=== PATIENT | female | born 1935 | race Native Hawaiian/Other Pacific Islander ===

== ENCOUNTER 2020-04-22 14:10 | Emergency (ER) | payer MEDICARE, OTHER ==
[2020-04-22 14:21] VITALS: PULSE 75
--- NOTE | 2020-04-22 14:34 | ED ---
General Adult HPI - General Chief complaint: Allergic Reaction Stated complaint: Bee Sting Time Seen by Provider: 04/22/20 14:23 Source: patient, EMS, RN notes reviewed Mode of arrival: EMS Limitations: no limitations - History of Present Illness Initial comments: 84-year-old female presents to the emergency room for a chief complaint of bee sting. Patient reports that she was stung in the bottom of the foot by a bee approximately 3 hours prior to arrival. Patient reports it is very itchy. A few minutes later patient started to feel lightheaded and short of breath. They called the ambulance and EMS gave the patient Benadryl, Solu-Medrol, and 0.3 mcg epinephrine on scene. They then transported patient to the hospital which took approximately 45 minutes. Patient reports that at this time she is feeling back to baseline. Denies chest pain or shortness of breath. States that she is feeling well.Patient has no other complaints at this time including shortness of breath, chest pain, abdominal pain, nausea or vomiting, headache, or visual changes. - Related Data Home Medications Medication Instructions Recorded Confirmed Ibuprofen [Motrin] 600 mg PO BID 02/18/16 04/22/20 Sertraline HCl [Zoloft] 50 mg PO DAILY 02/18/16 04/22/20 Loratadine 10 mg PO DAILY 04/22/20 04/22/20 Losartan [Cozaar] 50 mg PO DAILY 04/22/20 04/22/20 Previous Rx's Medication Instructions Recorded EPINEPHrine (Auto Inject) [Epipen] 0.3 mg IM ONCE PRN #1 pen 04/22/20 diphenhydrAMINE HCL [Benadryl] 25 mg PO TID 3 Days #20 tab 04/22/20 predniSONE 50 mg PO DAILY #5 tablet 04/22/20 Allergies Allergy/AdvReac Type Severity Reaction Status Date / Time aspirin Allergy Unknown Verified 04/22/20 15:34 Review of Systems ROS Statement: Those systems with pertinent positive or pertinent negative responses have been documented in the HPI. ROS Other: All systems not noted in ROS Statement are negative. Past Medical History Past Medical History: COPD, Hypertension Additional Past Medical History / Comment(s): uses cane History of Any Multi-Drug Resistant Organisms: None Reported Past Surgical History: Orthopedic Surgery Additional Past Surgical History / Comment(s): rt arm mass removed Past Anesthesia/Blood Transfusion Reactions: No Reported Reaction Past Psychological History: Depression Smoking Status: Current every day smoker Past Alcohol Use History: None Reported Past Drug Use History: None Reported - Past Family History Mother Family Medical History: No Reported History General Exam Limitations: no limitations General appearance: alert, in no apparent distress Head exam: Present: atraumatic, normocephalic, normal inspection Eye exam: Present: normal appearance, PERRL, EOMI. Absent: scleral icterus, conjunctival injection, periorbital swelling ENT exam: Present: normal exam, mucous membranes moist Neck exam: Present: normal inspection, full ROM. Absent: tenderness, menin gismus, lymphadenopathy Respiratory exam: Present: normal lung sounds bilaterally. Absent: respiratory distress, wheezes, rales, rhonchi, stridor Cardiovascular Exam: Present: regular rate, normal rhythm, normal heart sounds. Absent: systolic murmur, diastolic murmur, rubs, gallop, clicks GI/Abdominal exam: Present: soft, normal bowel sounds. Absent: distended, tenderness, guarding, rebound, rigid Extremities exam: Present: other (nonerythematous, non edematous left foot) Neurological exam: Present: alert Course Vital Signs 04/22/20 14:13 Temperature 97.7 F Pulse Rate 75 Respiratory 17 Rate Blood Pressure 154/74 O2 Sat by Pulse 100 Oximetry EKG Findings - EKG Comments: EKG Findings:: Normal sinus rhythm, ventricular rate 73, MA interval 160, QTC 447 Medical Decision Making - Medical Decision Making Patient had ALLERGIC reaction to a bee sting. Patient states she did see a wasp on the floor of her room and when she went to step on it to kill that it stung her. Patient had shortness of breath prior to arrival. She was given epinephrine, Benadryl, and Solu-Medrol as well as fluids by EMS. Patient was monitored for 2 hours in our emergency room. She was kept on cardiac telemetry. EKG was obtained which was normal. Heart rate consistently in the 70s. At this time patient can be discharged home. I did prescribe her an EpiPen that I discussed that she should only take this if she is becoming short of breath or having swelling of her lips tongue or throat. Otherwise she will take prednisone and Benadryl which I did discuss.I discussed this case with attending Dr. Bueno who agrees with this assessment and treatment plan. Disposition Clinical Impression: Allergic reaction Disposition: HOME SELF-CARE Condition: Good Instructions (If sedation given, give patient instructions): General Allergic Reaction (ED) Additional Instructions: Please take steroids starting tomorrow. Take Benadryl as directed however be aware that this can cause risk of falls. Use epi-pen only if you have another ALLERGIC reaction in the future that is causing shortness of breath or swelling of the lips tongue or throat. Follow-up with your doctor in one to 2 days for a recheck. Return to the emergency room for any worsening symptoms. Prescriptions: diphenhydrAMINE HCL [Benadryl] 25 mg PO TID 3 Days #20 tab EPINEPHrine (Auto Inject) [Epipen] 0.3 mg IM ONCE PRN #1 pen PRN Reason: Anaphylaxis predniSONE 50 mg PO DAILY #5 tablet Is patient prescribed a controlled substance at d/c from ED?: No Referrals: Nilesh Stanford MD [STAFF PHYSICIAN] - 1-2 days Time of Disposition: 16:10
[2020-04-22 16:28] VITALS: BP 145/73; RESP 19; TEMP 98
== END 2020-04-22 16:28 | disposition home or self-care (01) ==
LOC: EC 14:10
DX: T63.441A Toxic effect of venom of bees, accidental (unintentional), initial encounter (principal); I10 Essential (primary) hypertension; F32.9 Major depressive disorder, single episode, unspecified; F17.200 Nicotine dependence, unspecified, uncomplicated; Z79.899 Other long term (current) drug therapy; Z88.6 Allergy status to analgesic agent
CPT/HCPCS: 93005; 99283

== ENCOUNTER 2020-06-06 09:00 | Emergency (ER) | payer MEDICARE, OTHER ==
[2020-06-06 09:10] VITALS: RESP 18; TEMP 97.7
[2020-06-06] MEDS ORDERED: HYDROmorphone 1 MG/ML 1 ML SYRINGE IM STA (09:30)
--- NOTE | 2020-06-06 09:40 | ED ---
General Adult HPI - General Chief complaint: Extremity Injury, Lower Stated complaint: Pain in left hip Time Seen by Provider: 06/06/20 09:17 Source: family, RN notes reviewed Mode of arrival: ambulatory Limitations: language barrier - History of Present Illness Initial comments: This an 84-year-old female presents emergency Department with chief complaint of right leg pain, back pain. Patient states started a few days ago. Patient states that she felt like she injured it. Patient denies any bowel, bladder incontinence or retention or saddle anesthesia no lower procedure. Patient states the pain is worse with certain movements has no abdominal complaints no chest pain or shortness breath no history of back surgery. Patient has not taken anything for the pain. - Related Data Home Medications Medication Instructions Recorded Confirmed Ibuprofen [Motrin] 600 mg PO BID 02/18/16 04/22/20 Sertraline HCl [Zoloft] 50 mg PO DAILY 02/18/16 04/22/20 Loratadine 10 mg PO DAILY 04/22/20 04/22/20 Losartan [Cozaar] 50 mg PO DAILY 04/22/20 04/22/20 Previous Rx's Medication Instructions Recorded EPINEPHrine (Auto Inject) [Epipen] 0.3 mg IM ONCE PRN #1 pen 04/22/20 diphenhydrAMINE HCL [Benadryl] 25 mg PO TID 3 Days #20 tab 04/22/20 predniSONE 50 mg PO DAILY #5 tablet 04/22/20 Ibuprofen [Motrin] 600 mg PO Q8HR PRN #20 tab 06/06/20 predniSONE 50 mg PO DAILY #5 tab 06/06/20 Allergies Allergy/AdvReac Type Severity Reaction Status Date / Time aspirin Allergy Unknown Verified 06/06/20 09:10 Review of Systems ROS Statement: Those systems with pertinent positive or pertinent negative responses have been documented in the HPI. ROS Other: All systems not noted in ROS Statement are negative. Past Medical History Past Medical History: COPD, Hypertension Additional Past Medical History / Comment(s): uses cane History of Any Multi-Drug Resistant Organisms: None Reported Past Surgical History: Orthopedic Surgery Additional Past Surgical History / Comment(s): rt arm mass removed Past Anesthesia/Blood Transfusion Reactions: No Reported Reaction Past Psychological History: Depression Smoking Status: Current every day smoker Past Alcohol Use History: None Reported Past Drug Use History: None Reported - Past Family History Mother Family Medical History: No Reported History General Exam Limitations: language barrier General appearance: alert, in no apparent distress Head exam: Present: atraumatic, normocephalic, normal inspection Eye exam: Present: normal appearance, PERRL, EOMI. Absent: scleral icterus, conjunctival injection, periorbital swelling Neck exam: Present: normal inspection, full ROM. Absent: tenderness, meningismus, lymphadenopathy Respiratory exam: Present: normal lung sounds bilaterally. Absent: respiratory distress, wheezes, rales, rhonchi, stridor Cardiovascular Exam: Present: regular rate, normal rhythm, normal heart sounds. Absent: systolic murmur, diastolic murmur, rubs, gallop, clicks GI/Abdominal exam: Present: soft, normal bowel sounds. Absent: distended, tenderness, guarding, rebound, rigid Extremities exam: Present: other (Lower extremity strength equal bilaterally, neurovascular intact equal warmth moderate pain with right straight leg raise though strength is 5/5 both legs) Back exam: Present: full ROM, tenderness, paraspinal tenderness. Absent: vertebral tenderness Neurological exam: Present: reflexes normal. Absent: motor sensory deficit Course Vital Signs 06/06/20 09:08 Temperature 97.7 F Pulse Rate 62 Respiratory 18 Rate Blood Pressure 203/88 O2 Sat by Pulse 99 Oximetry Medical Decision Making - Medical Decision Making X-ray shows degenerative changes. Patient is moderately intact with no red flag symptoms. Patient has lumbar radiculopathy type symptoms. Patient provided course steroids, pain control with follow-up with orthopedics if no improvement. Disposition Clinical Impression: Lumbar radiculopathy, acute Disposition: HOME SELF-CARE Condition: Stable Instructions (If sedation given, give patient instructions): Lumbar Radiculopathy (ED) Additional Instructions: Please return to the Emergency Department if symptoms worsen or any other concerns. Prescriptions: Ibuprofen [Motrin] 600 mg PO Q8HR PRN #20 tab PRN Reason: Pain predniSONE 50 mg PO DAILY #5 tab Is patient prescribed a controlled substance at d/c from ED?: No Referrals: Rolando Brooke MD [Primary Care Provider] - 1-2 days Jayden Kinsey DO [Doctor of Osteopathic Medicine] - 1-2 days Time of Disposition: 10:17
--- NOTE | 2020-06-06 10:05 | XR ---
EXAMINATION TYPE: XR lumbosacral spine 5 views DATE OF EXAM: 06/06/2020 Comparison: 09/29/2015 Clinical History: 84-year-old female pain Findings: Osteopenia. 5 lumbar type vertebral bodies. Cholecystectomy clips. 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 Vertebral body heig hts are preserved. Grade 1 anterolisthesis L4-L5. Remaining alignment is maintained. Mild multilevel degenerative disc disease. Impression: Mild multilevel degenerative disc disease. Advanced hypertrophic facet arthropathy mid and lower lumb ar spine with degenerative grade 1 anterolisthesis L4-L5. Baastrup's disease.
[2020-06-06] MEDS ORDERED: ACET/COD 300 MG/30 MG STARTER PACK 6 TAB BTL PO STA (10:17)
[2020-06-06 10:52] VITALS: BP 183/83; PULSE 59
== END 2020-06-06 10:58 | disposition home or self-care (01) ==
LOC: EC 09:00
DX: M54.16 Radiculopathy, lumbar region (principal); I10 Essential (primary) hypertension; J44.9 Chronic obstructive pulmonary disease, unspecified; F32.9 Major depressive disorder, single episode, unspecified; F17.200 Nicotine dependence, unspecified, uncomplicated; Z79.899 Other long term (current) drug therapy; Z88.6 Allergy status to analgesic agent
CPT/HCPCS: 99283 ×2; 96372 ×2; 72110; J1170

== ENCOUNTER 2022-02-06 17:31 | Emergency (ER) | payer MEDICARE, OTHER ==
[2022-02-06 17:39] VITALS: BP 166/82; PULSE 76; RESP 16; TEMP 98.4
[2022-02-06 18:36] LABS: Basophils % (A) 0 %; Eosinophils # (A) 0.4 k/uL (0-0.7); Eosinophils % (A) 5 %; HCT 44.5 % (34.0-46.0); HGB 14.8 gm/dL (11.4-16.0); Lymphocytes % (A) 26 %; MCH 29.3 pg (25.0-35.0); MCHC 33.2 g/dL (31.0-37.0); MCV 88.1 fL (80.0-100.0); Mean Platelet Volume 7.3; Monocytes # (A) 0.4 k/uL (0-1.0); Monocytes % (A) 5 %; Neutrophils # (A) 4.7 k/uL (1.3-7.7); Neutrophils % (A) 63 %; Platelet Count 282 k/uL (150-450); RBC 5.04 m/uL (3.80-5.40); WBC 7.5 k/uL (3.8-10.6)
[2022-02-06 18:45] LABS: Partial Thromboplastin Time 25.5 sec (22.0-30.0); Prothrombin Time 10.4 sec (9.0-12.0)
[2022-02-06 18:58] LABS: Calcium 8.8 mg/dL (8.4-10.2); Magnesium 1.8 mg/dL (1.6-2.3); Total Bilirubin 0.5 mg/dL (0.2-1.3); Total Protein 6.8 g/dL (6.3-8.2)
--- NOTE | 2022-02-06 19:11 | XR ---
EXAMINATION TYPE: XR chest 2V DATE OF EXAM: 02/06/2022 COMPARISON: 02/17/2016 HISTORY: Chest pain TECHNIQUE: FINDINGS: There is no heart failure nor confluent pneumonic infiltrate. Costophrenic angles are clear . Bony thorax is intact. There is minor spurring in the thoracic spine. IMPRESSION: No active cardiopulmonary disease. No change.
--- NOTE | 2022-02-06 19:12 | CT ---
EXAMINATION TYPE: CT brain wo con DATE OF EXAM: 02/06/2022 COMPARISON: None HISTORY: Unsteady gait. CT DLP: 1126.4 mGycm Automated exposure control for dose reduction was used. Images of the brain obtained with no contrast. There is cerebral cortical atrophy. There is no mass effect or midline shift. No sign of intracranial hemorrhage. Calvarium is intact. No evidence of cerebral edema. IMPRESSION: Cerebral atrophy. No acute intracranial abnormality.
--- NOTE | 2022-02-06 19:13 | ED ---
General Adult HPI - General Chief complaint: Extremity Problem,Nontraumatic Stated complaint: difficulty walking Time Seen by Provider: 02/06/22 17:59 Source: patient, RN notes reviewed, old records reviewed Mode of arrival: wheelchair Limitations: no limitations - History of Present Illness Initial comments: 86-year-old female presenting for evaluation of unsteady gait and bilateral shoulder pain. Denies any injury. Denies fever. Denies central chest pain or difficulty breathing. No fever. Symptoms have been ongoing for the past several weeks. The gait instability has progressed over the past several days. She normally walks with a cane. She denies focal weakness or numbness. The history is somewhat limited by language barrier but she is able to answer all questions and her daughter is at bedside. - Related Data Home Medications Medication Instructions Recorded Confirmed Ibuprofen [Motrin] 600 mg PO BID 02/18/16 02/06/22 Losartan [Cozaar] 50 mg PO DAILY 04/22/20 02/06/22 Amitriptyline HCl [Elavil] 10 mg PO HS 02/06/22 02/06/22 Previous Rx's Medication Instructions Recorded EPINEPHrine (Auto Inject) [Epipen] 0.3 mg IM ONCE PRN #1 pen 04/22/20 Allergies Allergy/AdvReac Type Severity Reaction Status Date / Time aspirin Allergy Unknown Verified 02/06/22 19:14 Review of Systems ROS Statement: Those systems with pertinent positive or pertinent negative responses have been documented in the HPI. ROS Other: All systems not noted in ROS Statement are negative. Past Medical History Past Medical History: COPD, Hypertension Additional Past Medical History / Comment(s): uses cane History of Any Multi-Drug Resistant Organisms: None Reported Past Surgical History: Orthopedic Surgery Additional Past Surgical History / Comment(s): rt arm mass removed Past Anesthesia/Blood Transfusion Reactions: No Reported Reaction Past Psychological History: Depression Smoking Status: Current every day smoker Past Alcohol Use History: None Reported Past Drug Use History: None Reported - Past Family History Mother Family Medical History: No Reported History General Exam Limitations: no limitations General appearance: alert, in no apparent distress Head exam: Present: atraumatic, normocephalic Eye exam: Present: normal appearance, PERRL ENT exam: Present: normal exam Neck exam: Present: normal inspection. Absent: tenderness, meningismus Respiratory exam: Present: normal lung sounds bilaterally. Absent: respiratory distress, wheezes Cardiovascular Exam: Present: regular rate, normal rhythm GI/Abdominal exam: Present: soft. Absent: distended, tenderness, guarding Extremities exam: Present: normal inspection, normal capillary refill. Absent: pedal edema Neurological exam: Present: alert, oriented X3, CN II-XII intact. Absent: motor sensory deficit Psychiatric exam: Present: normal affect, normal mood Skin exam: Present: warm, dry, intact. Absent: cyanosis, diaphoretic Course Vital Signs 02/06/22 17:37 Temperature 98.4 F Pulse Rate 76 Respiratory 16 Rate Blood Pressure 166/82 O2 Sat by Pulse 98 Oximetry EKG Findings - EKG Comments: EKG Findings:: Sinus rhythm T-wave inversion in the precordial leads rate of 62, [place] interval 170, QRS duration 97, QTC 389 Medical Decision Making - Medical Decision Making 86-year-old female presenting with bilateral shoulder pain and gait instability. History does reveal that this may be more chronic issue. However given the language. Did perform significant testing in the emergency department. EKG shows T-wave inversion which is unchanged from prior in 2019. Troponin is negative. Normal CBC, normal CMP. I performed chest x-ray which is negative f or acute cardiopulmonary findings and CT of the brain which is negative for intracranial hemorrhage or mass effect. The patient is offered observation given the gait instability but the patient and family would prefer to be discharged home with outpatient follow-up. Strict return parameters are given. She will take Tylenol for pain. - Lab Data Result diagrams: 02/06/22 18:24 02/06/22 18:24 Lab Results 02/06/22 02/06/22 02/06/22 Range/Units 18:24 18:24 18:24 WBC 7.5 (3.8-10.6) k/uL RBC 5.04 (3.80-5.40) m/uL Hgb 14.8 (11.4-16.0) gm/dL Hct 44.5 (34.0-46.0) % MCV 88.1 (80.0-100.0) fL MCH 29.3 (25.0-35.0) pg MCHC 33.2 (31.0-37.0) g/dL RDW 14.0 (11.5-15.5) % Plt Count 282 (150-450) k/uL MPV 7.3 Neutrophils % 63 % Lymphocytes % 26 % Monocytes % 5 % Eosinophils % 5 % Basophils % 0 % Neutrophils # 4.7 (1.3-7.7) k/uL Lymphocytes # 2.0 (1.0-4.8) k/uL Monocytes # 0.4 (0-1.0) k/uL Eosinophils # 0.4 (0-0.7) k/uL Basophils # 0.0 (0-0.2) k/uL PT 10.4 (9.0-12.0) sec INR 1.0 (<1.2) APTT 25.5 (22.0-30.0) sec Sodium 140 (137-145) mmol/L Potassium 4.0 (3.5-5.1) mmol/L Chloride 108 H (98-107) mmol/L Carbon Dioxide 24 (22-30) mmol/L Anion Gap 8 mmol/L BUN 14 (7-17) mg/dL Creatinine 0.78 (0.52-1.04) mg/dL Est GFR (CKD-EPI)AfAm 79 (>60 ml/min/1.73 sqM) Est GFR (CKD-EPI)NonAf 68 (>60 ml/min/1.73 sqM) Glucose 101 H (74-99) mg/dL Calcium 8.8 (8.4-10.2) mg/dL Magnesium 1.8 (1.6-2.3) mg/dL Total Bilirubin 0.5 (0.2-1.3) mg/dL AST 24 (14-36) U/L ALT 15 (4-34) U/L Alkaline Phosphatase 100 (38-126) U/L Troponin I (0.000-0.034) ng/mL Total Protein 6.8 (6.3-8.2) g/dL Albumin 4.0 (3.5-5.0) g/dL Lipase 210 (23-300) U/L 02/06/22 Range/Units 18:24 WBC (3.8-10.6) k/uL RBC (3.80-5.40) m/uL Hgb (11.4-16.0) gm/dL Hct (34.0-46.0) % MCV (80.0-100.0) fL MCH (25.0-35.0) pg MCHC (31.0-37.0) g/dL RDW (11.5-15.5) % Plt Count (150-450) k/uL MPV Neutrophils % % Lymphocytes % % Monocytes % % Eosinophils % % Basophils % % Neutrophils # (1.3-7.7) k/uL Lymphocytes # (1.0-4.8) k/uL Monocytes # (0-1.0) k/uL Eosinophils # (0-0.7) k/uL Basophils # (0-0.2) k/uL PT (9.0-12.0) sec INR (<1.2) APTT (22.0-30.0) sec Sodium (137-145) mmol/L Potassium (3.5-5.1) mmol/L Chloride (98-107) mmol/L Carbon Dioxide (22-30) mmol/L Anion Gap mmol/L BUN (7-17) mg/dL Creatinine (0.52-1.04) mg/dL Est GFR (CKD-EPI)AfAm (>60 ml/min/1.73 sqM) Est GFR (CKD-EPI)NonAf (>60 ml/min/1.73 sqM) Glucose (74-99) mg/dL Calcium (8.4-10.2) mg/dL Magnesium (1.6-2.3) mg/dL Total Bilirubin (0.2-1.3) mg/dL AST (14-36) U/L ALT (4-34) U/L Alkaline Phosphatase (38-126) U/L Troponin I <0.012 (0.000-0.034) ng/mL Total Protein (6.3-8.2) g/dL Albumin (3.5-5.0) g/dL Lipase (23-300) U/L Disposition Clinical Impression: Osteoarthritis, Unstable gait Disposition: HOME SELF-CARE Condition: Fair Instructions (If sedation given, give patient instructions): Osteoarthritis (ED), Fall Prevention for Older Adults (ED) Is patient prescribed a controlled substance at d/c from ED?: No Referrals: Rolando Brooke MD [Primary Care Provider] - 1-2 days Time of Disposition: 19:27
[2022-02-06] MEDS ORDERED: ACETAMINOPHEN TAB 500 MG TAB PO STA (19:24)
== END 2022-02-06 21:53 | disposition home or self-care (01) ==
LOC: EC 17:31
DX: M19.012 Primary osteoarthritis, left shoulder (principal); M19.011 Primary osteoarthritis, right shoulder; R26.2 Difficulty in walking, not elsewhere classified; J44.9 Chronic obstructive pulmonary disease, unspecified; I10 Essential (primary) hypertension; F17.200 Nicotine dependence, unspecified, uncomplicated; Z79.899 Other long term (current) drug therapy; Z88.6 Allergy status to analgesic agent
CPT/HCPCS: 36415; 70450; 71046; 80053; 83690; 83735; 84484; 85025; 85610; 85730; 93005; 99284

== ENCOUNTER → 2022-04-18 | Outpatient (CLI) | payer MEDICARE, OTHER ==
--- NOTE | 2022-04-19 06:27 | MR ---
EXAMINATION TYPE: MR lumbar spine wo con DATE OF EXAM: 04/18/2022 COMPARISON: Outside lumbar spine x-ray March 18, 2022 HISTORY: LBP, bilateral leg weakness/numbness. Spinal stenosis. TECHNIQUE: Multiplanar, multisequence imaging of the lumbar spine is performed without IV contrast. FINDINGS: Sagittal images of the lumbar spine show vertebral body heights to appear satisfactory. The re is slight grade 1 anterolisthesis L4 on L5. Multilevel disc desiccation but the disc space heights are fairly well-maintained. The conus medullaris is normal in position and signal ending inferior L 1 level. Small hemangioma noted at the anterior superior L2 level. Mild to moderate multilevel anteri or spurring is seen. Axial images at the T11-T12 level shows oskh-pf-uvtbuadz broad disc bulge effacing the anterior theca l sac. Axial images at the T12-L1 level show mild broad disc bulge mildly effacing anterior thecal sac with mild ligamentum flavum hypertrophy slightly effacing the right posterior lateral thecal sac on axial image 32. Patent bilateral neural foramina. Axial images at L1-L2 level show mild broad disc bulge minimally effacing anterior thecal sac with pa tent bilateral neural foramina. Axial images at L2-L3 level show [id number] broad disc bulge mildly effaces the anterior thecal sac with mild to moderate facet arthropathy and ligamentum flavum hypertrophy effacing posterior lat eral thecal sac. Patent bilateral neural foramina. Axial images at the L3-L4 levels show mild/moderate facet arthropathy and ligamentum flavum hypertrop hy effacing posterior lateral thecal sac. There is kezj-kj-pvcqohyt broad disc bulge mildly effacing anterior thecal sac. There is mild left greater than right anterior inferior neural foraminal narrowi ng. Axial images at the L4-L5 level show spondylolisthesis with mild/moderate facet arthropathy and ligam entum flavum hypertrophy effacing posterior lateral thecal sac. There is pilc-ch-[id number] broad disc bulge effacing the anterior thecal sac. There is mild bilateral neural foraminal narrowing noted. Axial images at the L5-S1 level shows moderate to advanced facet arthropathy bilaterally. There is ri ght paracentral disc protrusion. There is additional left foraminal component causing [id number]-[id number] e inferior left-sided neural foraminal narrowing. Right-sided neural foramen is patent. Incidentally millimeter round T2 hyperintense lesion lateral right kidney favors benign thin-walled c yst axial image 23. There is mild to moderate extrahepatic biliary dilatation up to 15 mm axial image 25 becoming less prominent proximal and distal to this. Suggestion of 6 to 7 mm posterior peripheral right basilar lung nodule axial image 35. IMPRESSION: Multilevel degenerative changes in the lumbar spine as detailed above. There is focal mod erate extrahepatic biliary dilatation and suggestion of 6 to 7 mm peripheral posterior right basilar lung nodule both of which warrant follow-up imaging and further workup.
== END | disposition home or self-care (01) ==
LOC: RADMRIMAIN 18:15
PROVIDERS: ATTEND Orthopaedic Surgery
DX: M47.816 Spondylosis without myelopathy or radiculopathy, lumbar region (principal); M48.061 Spinal stenosis, lumbar region without neurogenic claudication
CPT/HCPCS: 72148

== ENCOUNTER → 2022-04-22 | Outpatient (CLI) | payer MEDICARE, OTHER ==
--- NOTE | 2022-04-26 08:57 | US ---
EXAMINATION TYPE: US arterial LE single level DATE OF EXAM: 04/22/2022 1:34 PM CLINICAL HISTORY: R23.8 SKIN CHANGES. Doppler Waveforms: Right: Multiphasic Left: Multiphasic Pressure Gradients: Not significant Ankle-Brachial Indices: Right: 1.15 Left: 1.10 Toe Brachial Indices: Right: 0.72 Left: 0.83 IMPRESSION: Normal ankle-brachial indices bilaterally
== END | disposition home or self-care (01) ==
LOC: RADUSWWP 12:58
PROVIDERS: ATTEND Family Medicine
DX: R23.8 Other skin changes (principal)
CPT/HCPCS: 93922

== ENCOUNTER 2022-05-30 17:01 | Inpatient (IN) | payer MEDICARE, OTHER ==
[2022-05-30] MEDS ORDERED: HEPARIN SODIUM 1,000 UN/ML (10ML VL) IV PRN (18:25)
[2022-05-30] MEDS ORDERED: HEPARIN SODIUM 1,000 UN/ML (10ML VL) IV ONE (18:25)
[2022-05-30] MEDS ORDERED: HEPARIN SOD,PORK IN 0.45% NACL 25,000 UNIT in 0.45% NACL 1 250ML.BAG IV SCH (18:30)
--- NOTE | 2022-05-30 18:42 | ED ---
General Adult HPI - General Chief complaint: Recheck/Abnormal Lab/Rx Stated complaint: Sent by PCP for Chest Xray Time Seen by Provider: 05/30/22 18:14 Source: patient, family, RN notes reviewed, old records reviewed Mode of arrival: wheelchair Limitations: no limitations - History of Present Illness Initial comments: Patient is a pleasant 86-year-old female presenting to the emergency room with her daughter at the direction of her primary care provider after having a computed tomography scan of the chest earlier today for surveillance of a pulmonary nodule which revealed a pulmonary emboli in the left lower lobe artery. He reports that she has been very sleepy with increased fatigue recently but denies any severe shortness of breath. She has had a cough with congestion ongoing for approximately 2 and reports that she has not been tested for COVID, flu or RSV. Overall with the exception of cough patient is feeling well at this time. She denies any chest pain, shortness of breath at rest, abdominal pain, nausea, vomiting, altered mental status, headache, dizziness, fevers or chills. She has a past medical history significant for COPD, hypertension, osteoarthritis and ambulates with a cane. - Related Data Home Medications Medication Instructions Recorded Confirmed Losartan [Cozaar] 50 mg PO DAILY 04/22/20 05/30/22 Albuterol Sulfate [Albuterol 2 puff PO RT-Q6H PRN 05/30/22 05/30/22 Sulfate Hfa] Dm/Acetaminophen/Doxylamine [Vicks 30 ml PO Q6H PRN 05/30/22 05/30/22 Nyquil Cold-Flu Liquid] Pregabalin [Lyrica] 75 mg PO BID 05/30/22 05/30/22 Allergies Allergy/AdvReac Type Severity Reaction Status Date / Time aspirin Allergy Unknown Verified 05/30/22 20:06 Review of Systems ROS Statement: Those systems with pertinent positive or pertinent negative responses have been documented in the HPI. ROS Other: All systems not noted in ROS Statement are negative. Past Medical History Past Medical History: COPD, Hypertension Additional Past Medical History / Comment(s): uses cane History of Any Multi-Drug Resistant Organisms: None Reported Past Surgical History: Orthopedic Surgery Additional Past Surgical History / Comment(s): rt arm mass removed Past Anesthesia/Blood Transfusion Reactions: No Reported Reaction Past Psychological History: Depression Smoking Status: Current every day smoker Past Alcohol Use History: None Reported Past Drug Use History: None Reported - Past Family History Mother Family Medical History: No Reported History General Exam Limitations: language barrier (Primary language Emirati, limited Moroccan response but understands; declines field sales manager ) General appearance: alert, in no apparent distress Head exam: Present: atraumatic, normocephalic, normal inspection Eye exam: Present: normal appearance, PERRL, EOMI. Absent: scleral icterus, conjunctival injection, periorbital swelling ENT exam: Present: normal exam, mucous membranes moist Neck exam: Present: normal inspection, full ROM Respiratory exam: Present: rhonchi (Scattered improved with cough). Absent: respiratory distress, wheezes, rales, stridor, accessory muscle use Cardiovascular Exam: Present: regular rate, normal rhythm, normal heart sounds. Absent: systolic murmur, diastolic murmur, rubs, gallop, clicks GI/Abdominal exam: Present: soft, normal bowel sounds. Absent: distended, tenderness, guarding, rebound, rigid Extremities exam: Present: normal inspection. Absent: pedal edema, joint swelling Back exam: Present: normal inspection Neurological exam: Present: alert, oriented X3, CN II-XII intact Psychiatric exam: Present: normal affect, normal mood Skin exam: Present: warm, dry, intact, normal color. Absent: rash Course Vital Signs 05/30/22 05/30/22 05/30/22 17:18 18:23 18:27 Temperature 98.7 F Pulse Rate 89 81 Respiratory 16 16 20 Rate Blood Pressure 113/67 106/65 O2 Sat by Pulse 96 94 L Oximetry 05/30/22 19:02 Temperature Pulse Rate 75 Respiratory 20 Rate Blood Pressure 99/66 O2 Sat by Pulse 95 Oximetry Medical Decision Making - Medical Decision Making 86-year-old female presenting to the emergency room at the direction of her primary care provider after having a CT of the chest earlier today for surveillance of a pulmonary nodule revealed a left lower lobe pulmonary emboli. Patient has had some shortness of breath and readily cough ongoing for approximately 2 weeks with increase in fatigue recently no previous history of pulmonary emboli. Daughter is at bedside help treat helping translate as sonia berman's primary language is Emirati with limited Moroccan. They deny need for field sales manager. CODE STATUS discussed and patient and family wishes for DO NOT RESUSCITATE status. CT of chest with contrast imaged from previously in the day interpreted by me showing pulmonary emboli in the left lower lobe. No evidence of other consolidation. Radiologist's report also reviewed. Will place patient on high i ntensity heparin drip check coags along with CBC and BMP. Given pulmonary congestion and cough ongoing for 2 weeks will also check cephid swabs for COVID, influenza and RSV. No need for repeat diagnostic imaging of lungs. Will obtain EKG and plan for admission for pulmonary emboli. Spoke with Dr. Amos regarding computed tomography scan revealing left lower lobe emboli and advised to location no need for activation of ekos. No hypoxemia or pain no indication for supplemental oxygen, respiratory treatment, steroids or analgesics. Will monitor closely. Spoke with Rufina from [facility] in regards for need of admission for further evaluation and treatment of pulmonary emboli admission accepted, no further orders received at this time. We'll place admission orders Will order echocardiogram for a.m. and as stated above, intensity protocol heparin ordered. CBC unremarkable. CMP reveals slightly low potassium at 3.4 no indication for repletion at this time. Cephid swabs positive for COVID, negative for influenza and RSV. Patient and family notified regarding laboratory studies and swab results. Case discussed with Dr. Amos - Lab Data Result diagrams: 05/30/22 18:44 05/30/22 18:44 Lab Results 05/30/22 05/30/22 05/30/22 Range/Units 18:44 18:44 18:44 WBC 6.6 (3.8-10.6) k/uL RBC 4.36 (3.80-5.40) m/uL Hgb 13.7 (11.4-16.0) gm/dL Hct 38.4 (34.0-46.0) % MCV 88.1 (80.0-100.0) fL MCH 31.4 (25.0-35.0) pg MCHC 35.7 (31.0-37.0) g/dL RDW 19.6 H (11.5-15.5) % Plt Count 263 (150-450) k/uL MPV 8.2 Neutrophils % 71 % Lymphocytes % 18 % Monocytes % 6 % Eosinophils % 2 % Basophils % 1 % Neutrophils # 4.7 (1.3-7.7) k/uL Lymphocytes # 1.2 (1.0-4.8) k/uL Monocytes # 0.4 (0-1.0) k/uL Eosinophils # 0.1 (0-0.7) k/uL Basophils # 0.0 (0-0.2) k/uL Poikilocytosis Slight Anisocytosis Slight PT 11.2 (9.0-12.0) sec INR 1.1 (<1.2) APTT 24.8 (22.0-30.0) sec Sodium (137-145) mmol/L Potassium (3.5-5.1) mmol/L Chloride (98-107) mmol/L Carbon Dioxide (22-30) mmol/L Anion Gap mmol/L BUN (7-17) mg/dL Creatinine (0.52-1.04) mg/dL Est GFR (CKD-EPI)AfAm (>60 ml/min/1.73 sqM) Est GFR (CKD-EPI)NonAf (>60 ml/min/1.73 sqM) Glucose (74-99) mg/dL Calcium (8.4-10.2) mg/dL Total Bilirubin (0.2-1.3) mg/dL AST (14-36) U/L ALT (4-34) U/L Alkaline Phosphatase (38-126) U/L Total Protein (6.3-8.2) g/dL Albumin (3.5-5.0) g/dL Influenza Type A (PCR) Not Detected (Not Detectd) Influenza Type B (PCR) Not Detected (Not Detectd) RSV (PCR) Not Detected (Not Detectd) SARS-CoV-2 (PCR) Detected A (Not Detectd) 05/30/22 Range/Units 18:44 WBC (3.8-10.6) k/uL RBC (3.80-5.40) m/uL Hgb (11.4-16.0) gm/dL Hct (34.0-46.0) % MCV (80.0-100.0) fL MCH (25.0-35.0) pg MCHC (31.0-37.0) g/dL RDW (11.5-15.5) % Plt Count (150-450) k/uL MPV Neutrophils % % Lymphocytes % % Monocytes % % Eosinophils % % Basophils % % Neutrophils # (1.3-7.7) k/uL Lymphocytes # (1.0-4.8) k/uL Monocytes # (0-1.0) k/uL Eosinophils # (0-0.7) k/uL Basophils # (0-0.2) k/uL Poikilocytosis Anisocytosis PT (9.0-12.0) sec INR (<1.2) APTT (22.0-30.0) sec Sodium 141 (137-145) mmol/L Potassium 3.4 L (3.5-5.1) mmol/L Chloride 107 (98-107) mmol/L Carbon Dioxide 26 (22-30) mmol/L Anion Gap 8 mmol/L BUN 12 (7-17) mg/dL Creatinine 0.68 (0.52-1.04) mg/dL Est GFR (CKD-EPI)AfAm >90 (>60 ml/min/1.73 sqM) Est GFR (CKD-EPI)NonAf 78 (>60 ml/min/1.73 sqM) Glucose 106 H (74-99) mg/dL Calcium 8.4 (8.4-10.2) mg/dL Total Bilirubin 1.3 (0.2-1.3) mg/dL AST 29 (14-36) U/L ALT 20 (4-34) U/L Alkaline Phosphatase 74 (38-126) U/L Total Protein 6.6 (6.3-8.2) g/dL Albumin 3.6 (3.5-5.0) g/dL Influenza Type A (PCR) (Not Detectd) Influenza Type B (PCR) (Not Detectd) RSV (PCR) (Not Detectd) SARS-CoV-2 (PCR) (Not Detectd) - EKG Data EKG Comments: EKG completed at 1912 intervertebral knee shows sinus rhythm, ventricular rate 77 bpm, TN interval 153 ms, QRS duration 86 ms, QT/QTC 395/427 ms, PRT axes 53, 31, 68 - Radiology Data Radiology results: report reviewed, image reviewed Ct chest with contrast completed outpatient at 1350 with critical findings sent to Dr. Ashutosh Mckenzie at 1451. Impression per radiologist there is a left lower lobe pulmonary artery pulmonary embolism. 0.5 cm posterior right lung nodule. Disposition Clinical Impression: Pulmonary emboli, COVID-19 Disposition: ADMITTED IP TO THIS HOSP Condition: Stable Is patient prescribed a controlled substance at d/c from ED?: No Time of Disposition: 20:19
[2022-05-30 18:54] LABS: Anisocytosis Slight; Basophils % (A) 1 %; Eosinophils # (A) 0.1 k/uL (0-0.7); Eosinophils % (A) 2 %; HCT 38.4 % (34.0-46.0); HGB 13.7 gm/dL (11.4-16.0); Lymphocytes # (A) 1.2 k/uL (1.0-4.8); Lymphocytes % (A) 18 %; MCH 31.4 pg (25.0-35.0); MCHC 35.7 g/dL (31.0-37.0); MCV 88.1 fL (80.0-100.0); Mean Platelet Volume 8.2; Monocytes # (A) 0.4 k/uL (0-1.0); Monocytes % (A) 6 %; Neutrophils # (A) 4.7 k/uL (1.3-7.7); Neutrophils % (A) 71 %; Platelet Count 263 k/uL (150-450); Poikilocytosis Slight; RBC 4.36 m/uL (3.80-5.40); RDW 19.6 % (11.5-15.5); WBC 6.6 k/uL (3.8-10.6)
[2022-05-30] MEDS ORDERED: NALOXONE 0.4 MG/ML 1 ML VIAL IV PRN (18:57)
[2022-05-30] MEDS ORDERED: ACETAMINOPHEN TAB 325 MG TAB PO PRN (18:57)
[2022-05-30 19:06] LABS: ALT 20 U/L (4-34); AST 29 U/L (14-36); African American GFR (CKD) >90 (>60 ml/min/1.73 sqM); Albumin 3.6 g/dL (3.5-5.0); Alkaline Phosphatase 74 U/L (38-126); Anion Gap 8 mmol/L; Blood Urea Nitrogen 12 mg/dL (7-17); Calcium 8.4 mg/dL (8.4-10.2); Carbon Dioxide 26 mmol/L (22-30); Chloride 107 mmol/L (98-107); Glucose 106 mg/dL (74-99); Non-African American GFR(CKD) 78 (>60 ml/min/1.73 sqM); Potassium 3.4 mmol/L (3.5-5.1); Sodium 141 mmol/L (137-145); Total Bilirubin 1.3 mg/dL (0.2-1.3); Total Protein 6.6 g/dL (6.3-8.2)
[2022-05-30 19:07] LABS: INR 1.1 (<1.2); Partial Thromboplastin Time 24.8 sec (22.0-30.0); Prothrombin Time 11.2 sec (9.0-12.0)
[2022-05-30] MEDS ORDERED: POTASSIUM CHLORIDE ER 20 MEQ TAB.ER PO STA ×2 (21:49)
[2022-05-30] MEDS: ALBUTEROL HFA INHALER INHALATION PRN (22:11)
[2022-05-30] MEDS: ZINC SULFATE 220 MG CAP PO SCH (22:48)
[2022-05-30] MEDS: PANTOPRAZOLE 40 MG TABLET PO SCH (22:48)
[2022-05-30] MEDS: PREGABALIN 75 MG CAP PO SCH (22:48)
[2022-05-30] MEDS: ASCORBIC ACID 500 MG TAB PO SCH (22:48)
[2022-05-30] MEDS: CHOLECALCIFEROL 25 MCG (1000 IU) TABLET PO SCH (22:48)
[2022-05-30] MEDS: SODIUM CHLORIDE 0.9% 1,000 ML IV SCH (22:49)
[2022-05-31 05:35] LABS: Anisocytosis Slight; Basophils % (A) 0 %; Eosinophils # (A) 0.2 k/uL (0-0.7); Eosinophils % (A) 2 %; HCT 36.1 % (34.0-46.0); HGB 12.7 gm/dL (11.4-16.0); Lymphocytes # (A) 1.1 k/uL (1.0-4.8); Lymphocytes % (A) 14 %; MCH 31.8 pg (25.0-35.0); MCHC 35.1 g/dL (31.0-37.0); MCV 90.4 fL (80.0-100.0); Monocytes # (A) 0.4 k/uL (0-1.0); Monocytes % (A) 5 %; Neutrophils # (A) 6.5 k/uL (1.3-7.7); Neutrophils % (A) 78 %; Platelet Count 244 k/uL (150-450); Poikilocytosis Slight; RDW 19.5 % (11.5-15.5); WBC 8.3 k/uL (3.8-10.6)
[2022-05-31] MEDS: ALBUTEROL HFA INHALER INHALATION PRN ×2 (08:37→11:17)
[2022-05-31] MEDS: PANTOPRAZOLE 40 MG TABLET PO SCH (09:17)
[2022-05-31] MEDS: ASCORBIC ACID 500 MG TAB PO SCH (09:17)
[2022-05-31] MEDS: CHOLECALCIFEROL 25 MCG (1000 IU) TABLET PO SCH (09:17)
[2022-05-31] MEDS: ZINC SULFATE 220 MG CAP PO SCH (09:17)
[2022-05-31] MEDS: PREGABALIN 75 MG CAP PO SCH (09:17)
[2022-05-31] MEDS: SODIUM CHLORIDE 0.9% 1,000 ML IV SCH (09:18)
[2022-05-31 09:32] VITALS: BP 119/76; RESP 20; TEMP 97.8
[2022-05-31 10:47] VITALS: PULSE 65
--- NOTE | 2022-05-31 13:57 | P.HPIM ---
History of Present Illness H&P Date: 05/31/22 This is an 86-year-old female who presented to the emergency department with daughter as patient has been having continued cough and being followed outpatient by their nurse practitioner Umm DOMÍNGUEZ of Dr. Pricila Mckenzie and was recently started on steroids and continued to have the cough with no improvement and instructed to have a chest CT outpatient which was suggestive of a left lower lobe pulmonary artery pulmonary embolism with a 0.5 cm posterior right lung nodule and instructed to come to the ER to be admitted. Patient was also noted to be tested for RSV, influenza, and Covid and was found to be Covid positive. Patient does live with her daughter and will be returning home with them on discharge. Patient was started on IV heparin and will verify coverage for anticoagulant and transition. Patient is currently 95-97% on room air and denies shortness of breath. Patient does continue with this cough. Daughter would like to take the patient home if possible today. She was admitted for PE with evaluation. Review Of Systems: Constitutional: No fever, no chills, no night sweats. No weight change. No weakness, fatigue or lethargy. No daytime sleepiness. EENT: No headache. No blurred vision or double vision, no loss of vision. No loss of Hearing, no ringing in the ears, no dizziness. No nasal drainage or congestion. No epistaxis. No sore throat. Lungs: No shortness of breath, reports cough, no sputum production. No wheezing. Cardiovascular: No chest pain, no lower extremity edema. No palpitations. No paroxysmal nocturnal dyspnea. No orthopnea. No lightheadedness or dizziness. No syncopal episodes. Abdominal: No abdominal pain. No nausea, vomiting. No diarrhea. No constipation. No bloody or tarry stools.. No loss of appetite. Genitourinary: No dysuria, increased frequency, urgency. No urinary retention. Musculoskeletal: No myalgias. No muscle weakness, no gait dysfunction, no frequent falls. No back pain. No neck pain. Integumentary: No wounds, no lesions. No rash or pruritus. No unusual bruising. No change in hair or nails. Neurologic: No aphasia. No facial droop. No change in mentation. No head injury. No headache. No paralysis. No paresthesia. Psychiatric: No depression. No anxiety. No mood swings. Endocrine: No abnormal blood sugars. No weight change. No excessive sweating or thirst. No cold intolerance. PHYSICAL EXAMINATION: GENERAL: The patient is alert and oriented x3-4, speaks very little Swiss although has daughter who speaks Swiss at bedside, Well developed, well nourished. Obese. HEENT: Pupils are round and equally reacting to light. EOMI. no scleral icterus. No conjunctival pallor. Normocephalic, atraumatic. No pharyngeal erythema. No thyromegaly. CARDIOVASCULAR: S1 and S2 muffled PULMONARY: diminished breath sounds bilaterally with no wheezing or rhonchi noted. ABDOMEN: soft. Nontender on exam. obese. non-distended, normoactive bowel sounds. No palpable organomegaly. MUSCULOSKELETAL: No joint swelling or deformity. EXTREMITIES: No cyanosis, clubbing, or pedal edema. NEUROLOGICAL: Gross neurological examination did not reveal any focal deficits. SKIN: No rashes. Assessment: Left lower lobe pulmonary emboli 0.5 cm posterior right lung nodule, needs outpatient follow-up Acute COVID-19 infection History of COPD, not an exacerbation Hypertension History of depression Continued ongoing nicotine dependence GI prophylaxis DVT prophylaxis no code Plan: Recommend to continue with current medications and management. Patient was started on IV heparin and other labs reviewed and within normal limits. Potassium slightly low at 3.4 and replaced per protocol. Patient continues to be on IV heparin and will verify coverage of oral anticoagulant and transition as there is no evidence of heart strain. There is a 0.5 cm posterior right lung nodule and will refer the patient to pulmonary outpatient. Patient is 95% on room air denying shortness of breath. Daughter at the bedside with patient asking when she can go home. She will be discharged later today after malissa ification of coverage Eliquis. Discussed with the daughter about increased risk of bleeding as she reports in the past patient has been falling multiple times while living at home alone and now patient lives with daughter and has a walker at home. Patient encouraged to follow-up with primary care provider on discharge as well. The impression and plan of care has been dictated by Kasia Garcia, nurse practitioner as directed. Dr. Maikel MD I have performed a history and examination and MDM of this patient, discussed the same with the dictator, and agree with the dictator's assessment and plan as written ,documented as a scribe. Based on total visit time, I have performed more than 50% of the visit. Any additional findings or plans will be noted. Past Medical History Past Medical History: COPD, Hypertension Additional Past Medical History / Comment(s): uses cane History of Any Multi-Drug Resistant Organisms: None Reported Past Surgical History: Orthopedic Surgery Additional Past Surgical History / Comment(s): rt arm mass removed Past Anesthesia/Blood Transfusion Reactions: No Reported Reaction Past Psychological History: Depression Smoking Status: Current every day smoker Past Alcohol Use History: None Reported Past Drug Use History: None Reported - Past Family History Mother Family Medical History: No Reported History Medications and Allergies Home Medications Medication Instructions Recorded Confirmed Type Albuterol Sulfate [Albuterol 2 puff PO RT-Q6H PRN 05/30/22 05/30/22 History Sulfate Hfa] Dm/Acetaminophen/Doxylamine [Vicks 30 ml PO Q6H PRN 05/30/22 05/30/22 History Nyquil Cold-Flu Liquid] Pregabalin [Lyrica] 75 mg PO BID 05/30/22 05/30/22 History Apixaban [Eliquis Starter Pack 5 - 10 mg PO DIRECTED 30 Days 05/31/22 Rx (for VTE)] #1 each Losartan [Cozaar] 25 mg PO DAILY #0 05/31/22 05/30/22 Rx Allergies Allergy/AdvReac Type Severity Reaction Status Date / Time aspirin Allergy Unknown Verified 05/30/22 20:06 Physical Exam Vitals: Vital Signs Temp Pulse Resp BP Pulse Ox 05/31/22 08:42 95 05/31/22 05:00 79 19 100/58 97 05/31/22 04:00 79 18 108/73 94 L 05/31/22 03:40 108/73 05/31/22 03:25 86 16 94 L 05/30/22 22:57 98.0 F 76 20 131/58 98 05/30/22 20:35 79 18 113/69 94 L 05/30/22 19:02 75 20 99/66 95 05/30/22 18:27 20 05/30/22 18:23 81 16 106/65 94 L 05/30/22 17:18 98.7 F 89 16 113/67 96 Intake and Output 11/28/22 11/29/22 11/29/22 22:59 06:59 14:59 Intake Total 96.1 Balance 96.1 Intake: Intake, IV Titration 96.1 Amount Heparin Sod,Pork in 0.45% 96.1 NaCl 25,000 unit In 0.45 % NaCl 1 250ml.bag @ 18 UNITS/KG/HR 13.472 mls/hr IV .[id number] FOSTER Rx#: [id number] Other: Weight 74.843 kg Results CBC & Chem 7: 05/31/22 05:06 05/31/22 05:06 Labs: Abnormal Lab Results - Last 24 Hours (Table) 05/30/22 05/30/22 05/30/22 Range/Units 18:44 18:44 18:44 RDW 19.6 H (11.5-15.5) % APTT (22.0-30.0) sec Potassium 3.4 L (3.5-5.1) mmol/L Glucose 106 H (74-99) mg/dL SARS-CoV-2 (PCR) Detected A (Not Detectd) 05/31/22 05/31/22 05/31/22 Range/Units 00:22 05:06 08:46 RDW 19.5 H (11.5-15.5) % APTT 107.9 H* 79.1 H (22.0-30.0) sec Potassium (3.5-5.1) mmol/L Glucose (74-99) mg/dL SARS-CoV-2 (PCR) (Not Detectd) Thrombosis Risk Factor Assmnt - DVT/VTE Prophylaxis DVT/VTE Prophylaxis: Pharmacologic Prophylaxis ordered Assessment and Plan Time with Patient: Greater than 30
--- NOTE | 2022-05-31 19:30 | P.DS ---
Providers Date of admission: 05/30/22 19:08 Expected date of discharge: 05/31/22 Attending physician: Ranyd Ndiaye Primary care physician: Ashutosh Mckenzie [facility] Course: Final diagnosis Left lower lobe pulmonary emboli 0.5 cm posterior right lung nodule, needs outpatient follow-up Acute COVID-19 infection History of COPD, not an exacerbation Hypertension History of depression Continued ongoing nicotine dependence GI prophylaxis DVT prophylaxis no code Discharge disposition Patient is being discharged in a stable condition with guarded prognosis to home. Patient will follow-up with Dr. Mckenzie and the SMT MACHINE OPERATOR in the outpatient s etting upon discharge. Patient is to continue with eliquis 10mg bid for 7 days and then titrate down to 5mg bid as scheduled. Strongly recommend follow up with pulmonary. Total time taken is greater than 35 minutes. Hospital course This is a 86-year-old female who was recently admitted with cough and shortness of breath and CT done outpatient was suggestive of a left lower lobe pulmonary emboli and was admitted for treatment and evaluation. Patient was tested positive for covid. No suggestion of right heart strain and started on IV heparin. Patient is 95% on room air and denies shortness of breath. Daughter at the bedside who is translating and her caregiver would like to take the patient home. She currently lives with her. Eliquis has been verified and covered and will be started on 10mg BID for one week and then 5mg bid thereafter. Strongly recommended following up with pulmonary and also discussed risks of bleeding with a blood thinner and fall risks. Patient daughter reports she does use a walker and has one at home. Currently no reports of chest pain, shortness of breath, or palpitations. Patient is afebrile. No reports of nausea or vomiting and patient is tolerating diet. Patient will be discharged home today. Guarded prognosis. Physical exam: Gen: This is a 86 year old female who is awake, alert and oriented x3. well developed, well nourished. HEENT: Head is atraumatic, normocephalic. Pupils equal, round. Sclerae is anicteric. NECK: Supple. No JVD. No lymphadenopathy. No thyromegaly. LUNGS: Clear to auscultation. No wheezes or rhonchi. No intercostal retractions. HEART: Regular rate and rhythm. No murmur. ABDOMEN: Soft. Bowel sounds are present. No masses. No tenderness. EXTREMITIES: No pedal edema. No calf tenderness. NEUROLOGICAL: Patient is awake, alert and oriented x3. Cranial nerves 2 through 12 are grossly intact. Please refer to medication reconciliation sheet for a list of medications. The impression and plan of care has been dictated by Kasia Garcia, Nurse Practitioner as directed. Dr. Maikel MD I have performed a history and examination and MDM of this patient, discussed the same with the dictator, and agree with the dictator's assessment and plan as written ,documented as a scribe. Based on total visit time, I have performed more than 50% of the visit. Patient Condition at Discharge: Stable Plan - Discharge Summary New Discharge Prescriptions: New Apixaban [Eliquis Starter Pack (for VTE)] 5 - 10 mg PO DIRECTED 30 Days #1 each Continue Pregabalin [Lyrica] 75 mg PO BID Albuterol Sulfate [Albuterol Sulfate Hfa] 2 puff PO RT-Q6H PRN PRN Reason: Shortness Of Breath Dm/Acetaminophen/Doxylamine [Vicks Nyquil Cold-Flu Liquid] 30 ml PO Q6H PRN PRN Reason: COUGH AND COLD Changed Losartan [Cozaar] 25 mg PO DAILY #0 Discharge Medication List Albuterol Sulfate [Albuterol Sulfate Hfa] 2 puff PO RT-Q6H PRN 05/30/22 [History] Dm/Acetaminophen/Doxylamine [Vicks Nyquil Cold-Flu Liquid] 30 ml PO Q6H PRN 05/30/22 [History] Pregabalin [Lyrica] 75 mg PO BID 05/30/22 [History] Apixaban [Eliquis Starter Pack (for VTE)] 5 - 10 mg PO DIRECTED 30 Days #1 each 05/31/22 [Rx] Losartan [Cozaar] 25 mg PO DAILY #0 05/31/22 [Rx] Follow up Appointment(s)/Referral(s): Ashutosh Mckenzie DO [Primary Care Provider] - 06/03/22 2:15 pm Jasmin Adair MD [STAFF PHYSICIAN] - 2 Weeks (Recent PE, 0.5 cm pulmonary nodule noted on CT) Patient Instructions/Handouts: Pulmonary Embolism (DC), COVID-19 (Coronavirus Disease 2019) (DC) Activity/Diet/Wound Care/Special Instructions: Activity Limited until follow-up Follow-up with primary care provider on discharge Follow-up with pulmonary outpatient in the next 2-3 weeks Continue taking medications as prescribed Discharge Disposition: HOME SELF-CARE
--- NOTE | 2022-06-13 06:03 | CDI ---
Documentation Clarification Form Date: 06/13/2022 05:48:00 AM From: Bre Felix Admit Date: 05/31/2022 07:27:00 AM Patient Name: Daniel Franco Visit Number: [id number] Discharge Date: 05/31/2022 12:28:00 PM ATTENTION: The Clinical Documentation Specialists (CDI) and [facility] Coding Staff appreciate your assistance in clarifying documentation. Please respond to the clarification below the line at the bottom and electronically sign. The CDI & [facility] Coding staff will review the response and follow-up if needed. Please note: Queries are made part of the Legal Health Record. If you have any questions, please contact the author of this message via ITS. Dr. Kali Ko Acute Covid 19 is documented throughout the chart and patient is noted to have a new PE, which is also documented throughout the chart. Please clarify if there is a relationship between the Covid 19 and the PE. History/Risk Factors: COPD, lung nodule, PE and Covid 19 positive Clinical Indicators: PE found while getting outpatient CT. Covid positive on 05/30 Treatment: Heparin, Zinc, vicks cold and flu Please clarify the relationship, if any, which is clinically appropriate for this patient: [x ] PE is due to Covid 19 [ ] PE is not due to Covid 19 [ ] Other explanation of clinical findings (please specify) [ ] Unable to determine (no explanation for clinical findings) MTDD
== END 2022-05-31 12:28 | disposition home or self-care (01) | DRG 177 ==
LOC: EC 17:01 → 3SCARD 19:08 → INTOOBSV 05-31 07:27 → OBSVTOIN 05-31 07:27 → 5NMEDONC 05-31 10:50 → 4SSUR 05-31 11:03 → UNDODISOB 05-31 12:28
PROVIDERS: ADMIT Hospitalist; ATTEND Hospitalist
DX: U07.1 COVID-19 (principal); I26.99 Other pulmonary embolism without acute cor pulmonale; F17.210 Nicotine dependence, cigarettes, uncomplicated; F32.A Depression, unspecified; F17.200 Nicotine dependence, unspecified, uncomplicated; I10 Essential (primary) hypertension; J44.9 Chronic obstructive pulmonary disease, unspecified; Z66 Do not resuscitate; Z79.899 Other long term (current) drug therapy; Z88.6 Allergy status to analgesic agent; Z79.01 Long term (current) use of anticoagulants
CPT/HCPCS: 36415; 71260; 80053; 82565; 84132; 84520; 85025; 85610; 85730; 87636; 93005; 94640; 94760

== ENCOUNTER → 2022-05-30 | Outpatient (CLI) | payer MEDICARE, OTHER ==
[2022-05-30 13:19] LABS: African American GFR (CKD) >90 (>60 ml/min/1.73 sqM); Blood Urea Nitrogen 11 mg/dL (7-17); Non-African American GFR(CKD) 81 (>60 ml/min/1.73 sqM)
--- NOTE | 2022-05-30 14:53 | CT ---
EXAMINATION TYPE: CT chest w con DATE OF EXAM: 05/30/2022 COMPARISON: None HISTORY: Solitary Pulmonary Nodule CT DLP: 221.80 mGycm, Automated exposure control for dose reduction was used. CONTRAST: Performed injected with 70 ml mL of Isovue 300. TECHNIQUE: Axial images were obtained at 5 mm thick sections. Reconstructed images are reviewed on [employer] computer in the coronal plane. FINDINGS: Portion of the thyroid visualized is normal. There is a nonspecific 0.5 cm nodule posterior right costophrenic angle. No enlarged mediastinal or hilar adenopathy is evident. The ascending aorta diameter at the level o f the main pulmonary artery is 3.8 cm. The main pulmonary artery diameter at the bifurcation is 3.1 cm. Note is made of a filling defect within left lower lobe pulmonary artery. Limited CT sections are obtained through the upper abdomen. Right adrenal gland is thickened measurin g 2.0 cm. IMPRESSIONS: 1. There is a left lower lobe pulmonary artery pulmonary embolism. 2. 0.5 cm posterior right lung nodule. A Red level critical message alert has been initiated for Ashutosh Mckenzie DO via the [employer] Critical Results System on 05/30/2022 2:51 PM. This message alert has been sent to Ashutosh oreilly DO via the preferences provided by the clinician for the receipt of Radiology Critical Findings. [facility] [id number].
== END | disposition home or self-care (01) ==
LOC: RADCTMAIN 12:41
PROVIDERS: ATTEND Family Medicine
DX: I26.99 Other pulmonary embolism without acute cor pulmonale (principal); R91.1 Solitary pulmonary nodule
CPT/HCPCS: 82565; 84520; 71260; 36415; Q9967

== ENCOUNTER → 2022-10-12 | Outpatient (CLI) | payer MEDICARE, OTHER ==
--- NOTE | 2022-10-12 15:54 | XR ---
EXAMINATION TYPE: XR knee complete bilateral DATE OF EXAM: 10/12/2022 3:27 PM INDICATION: Patient age:Female; 87 years old; Reason for study: M25.562 PAIN IN LEFT KNEE M25.561 PAIN IN RIGHT KN; [facility]. COMPARISON: None. TECHNIQUE: Both knees were examined in frontal, lateral, and oblique projections. FINDINGS: No acute fracture or dislocation. Bilateral tricompartmental joint space narrowing with mar ginal spurring noted. Incidental bilateral fabellae. No joint effusion or soft tissue edema. IMPRESSION: 1. No acute osseous pathology. 2. Mild tricompartmental osteoarthritic changes bilaterally.
== END | disposition home or self-care (01) ==
LOC: RADXRMAIN 14:59
PROVIDERS: ATTEND Nurse Practitioner Family
DX: M17.0 Bilateral primary osteoarthritis of knee (principal)